=== PATIENT | female | born 1960 | race African-American/Black ===

== ENCOUNTER 2017-06-13 08:49 | Emergency (ER) | payer BC ==
[~2017-06-13] VITALS: Ht 167.6 cm; Wt 75.9 kg
[~2017-06-13 08:49] MED LIST: ASPIRIN EC325 MG PO; CELECOXIB200 MG PO; ENDOCET 5-3251 EACH PO; IRON325 M1 PO; LEVOTHYROXINE150 MCG PO; SENNA PLUS TAB1 EACH PO; TRAMADOL HCL50 MG PO
[2017-06-13 10:16] LABS: APPEARANCE CLEAR ((CLEAR)); BILIRUBIN NEGATIVE; BLOOD NEGATIVE; COLOR YELLOW ((YELLOW)); GLUCOSE (STRIP) NEGATIVE; KETONES NEGATIVE; LEUKOCYTES TRACE; NITRITE NEGATIVE; PROTEIN (STRIP) NEGATIVE; SPECIFIC GRAVITY 1.018 (1.000-1.030); UROBILINOGEN 0.2 MG/DL (0.2-1.0)
[2017-06-13 10:19] LABS: BACTERIA RARE /HPF; EPITHELIAL CELLS 2+ /HPF; MUCUS 1+ /LPF; RED BLOOD CELLS 0-5 /HPF (0-5); UCUL ADDED? NO; WHITE BLOOD CELLS 0-5 /HPF (0-5)
[2017-06-13 10:23] LABS: HEMATOCRIT 45.3 % (36.0-46.0); HEMOGLOBIN 14.9 G/DL (11.9-15.5); MCH 27.2 PG (29.0-34.0); MCHC 32.9 G/DL (30.0-36.0); MCV 82.7 FL (83-99); PLATELET COUNT 352 K/uL (156-360); RBC DIS.WIDTH-CV 13.6 % (11.8-14.6); RBC DIS.WIDTH-SD 40.5 % (39-53); RED BLOOD COUNT 5.48 M/uL (3.80-5.20); WHITE BLOOD COUNT 5.8 K/uL (4.1-10.2)
[2017-06-13 10:51] LABS: CHLORIDE 104 mEq/L (99-109); POTASSIUM 4.6 mEq/L (3.7-5.4); SODIUM 140 mEq/L (136-147)
[2017-06-13 10:53] LABS: GLUCOSE 81 mg/dL (70-99)
[2017-06-13 10:56] LABS: GFR ESTIMATE (CALCULATED) > 59 mL/min/
[2017-06-13 10:57] LABS: UREA NITROGEN (BUN) 9 mg/dL (9-23)
[2017-06-13] MEDS ORDERED: ULTRAM50 MG PO (12:21)
[2017-06-13] MEDS ORDERED: NAPROSYN500 MG PO (12:21)
[2017-06-13 12:34] VITALS: BP 172/89
== END 2017-06-13 12:34 | disposition home or self-care (01) ==
LOC: EME 08:49
PROVIDERS: Nurse Practitioner Family
DX: M54.5 Low back pain (principal); R19.00 Intra-abdominal and pelvic swelling, mass and lump, unspecified site
CPT/HCPCS: 74176; 80048; 81003; 85027; 99281; 99284; J1885; J2405; J7030

== ENCOUNTER → 2017-07-21 | Outpatient (CLI) | payer BC ==
[~2017-07-21] MED LIST changes: +HYDROQUINONE TP; +LEVOTHYROXINE175 MCG PO; +NAPROSYN500 MG PO; +ULTRAM50 MG PO
[2017-07-21 10:29] LABS: INTER. NORMALIZED RATIO 1.1
[2017-07-21 10:32] LABS: PTT 31.2 SEC (25-37)
[2017-07-21 10:37] LABS: HEMOGLOBIN 13.6 G/DL (11.9-15.5); MCH 26.4 PG (29.0-34.0); MCHC 31.6 G/DL (30.0-36.0); MCV 83.5 FL (83-99); PLATELET COUNT 304 K/uL (156-360); RBC DIS.WIDTH-CV 14.6 % (11.8-14.6); RBC DIS.WIDTH-SD 44.6 % (39-53); RED BLOOD COUNT 5.15 M/uL (3.80-5.20); WHITE BLOOD COUNT 5.2 K/uL (4.1-10.2)
== END | disposition home or self-care (01) ==
LOC: OPR 09:28 → EDSTATUS 10:00 → OPR 10:00
PROVIDERS: Family Medicine Geriatric Medicine
DX: N73.6 Female pelvic peritoneal adhesions (postinfective) (principal); E03.9 Hypothyroidism, unspecified; E78.2 Mixed hyperlipidemia
CPT/HCPCS: 77012; 85027; 85610; 85730; 88305; J3010